=== PATIENT | male | born 1950 | race Caucasian/White ===

== ENCOUNTER 2018-04-06 10:48 | Emergency (ER) | payer OTHER, MEDICARE ==
--- NOTE | 2018-04-06 12:07 | EDPHY ---
HPI/HX/ROS/PE/MDM Narrative: CHIEF COMPLAINT: Myalgias, fever HPI: This patient is a 67 year old male arriving at the request of his PCP, Dr. Guillen , for evaluation of myalgias and fever. He returned 4-5 days ago from a trip to [place], [place], and [place]. Patient swam frequently in the salt water pool, but not in the ocean. [place] a strange reaction in his ears. Endorses cerumen impaction and hearing loss, but this was resolved after a trip to urgent care overseas. Not bitten by any wild animals. Denies any known mosquito bites or travel to areas with high malaria incidence. On the flight back on Wednesday, developed generalized body aches. Wednesday night, worsening, night sweats. Continues to feel weak and achy. Endorses headache and sore throat. Denies nausea, vomiting. Febrile, but did not feel so. REVIEW OF SYSTEMS: A comprehensive 10 system review of systems is otherwise negative aside from elements mentioned in the history of present illness and medical decision making. PMH: Includes hyperlipidemia. SOCIAL HISTORY: . Self-employed. Frequent international travel. PHYSICAL EXAM: General:Patient is alert, in no acute distress. ENT:Eyes are normal to inspection. ENT inspection normal. Neck: Normal inspection. Full range of motion. Respiratory:No respiratory distress. Breath sounds normal bilaterally. Cardiovascular: Regular rate and rhythm. Strong peripheral pulses. Normal cap refill. Abdomen:The abdomen is nontender to palpation. There are no peritoneal signs. There are normal bowel sounds. Back: Normal to inspection. No tenderness to palpation. Skin: Normal color. No rash. Warm and dry. Extremities: Normal appearance. Full range of motion. Neuro: Oriented x3. Normal motor function. Normal sensory function. ED Course: 67 y/o male presents with fever and myalgias following recent international travel. Plan for labs including CBC, chemistries, UA, flu swab, LFTs. Plan to administer 30mg IV Toradol and 1L IV NS for symptom relief. Laboratory studies largely unremarkable. Flu swab pending. Flu swab positive for flu A. Reassessed. Discussed laboratory results. Plan to discharge home in good condition with prescription for Tamiflu. He will follow up with his primary care provider. Follow up and return precautions discussed. He is comfortable with this plan. MDM: This patient presents with signs and symptoms suggestive of influenza, which is confirmed by PCR. He is obviously at risk for other tropical diseases, but I think influenza is far more likely, and the patient has no abnormal exam or laboratory findings to suggest otherwise. He will be treated with Tamiflu, and I have agreed to write a prescription for a prophylactic course for his as well. - Data Points Laboratory Results: Laboratory Results 04/06/18 12:58 04/06/18 12:58 04/06/18 04/06/18 04/06/18 12:58 12:58 12:45 WBC 6.11 10^3/uL 10^3/uL (3.80-9.50) RBC 4.55 10^6/uL 10^6/uL (4.40-6.38) Hgb 14.2 g/dL g/dL (13.7-17.5) Hct 41.8 % % (40.0-51.0) MCV 91.9 fL fL (81.5-99.8) MCH 31.2 pg pg (27.9-34.1) MCHC 34.0 g/dL g/dL (32.4-36.7) RDW 12.2 % % (11.5-15.2) Plt Count 151 10^3/uL 10^3/uL (150-400) MPV 10.2 fL fL (8.7-11.7) Neut % (Auto) 65.6 % % (39.3-74.2) Lymph % (Auto) 17.5 % % (15.0-45.0) [place] % (Auto) 16.4 % H % (4.5-13.0) Eos % (Auto) 0.0 % L % (0.6-7.6) Baso % (Auto) 0.3 % % (0.3-1.7) Nucleat RBC Rel Count 0.0 % % (0.0-0.2) Absolute Neuts (auto) 4.01 10^3/uL 10^3/uL (1.70-6.50) Absolute Lymphs (auto) 1.07 10^3/uL 10^3/uL (1.00-3.00) Absolute Monos (auto) 1.00 10^3/uL H 10^3/uL (0.30-0.80) Absolute Eos (auto) 0.00 10^3/uL L 10^3/uL (0.03-0.40) Absolute Basos (auto) 0.02 10^3/uL 10^3/uL (0.02-0.10) Absolute Nucleated RBC 0.00 10^3/uL 10^3/uL (0-0.01) Immature Gran % 0.2 % % (0.0-1.1) Immature Gran # 0.01 10^3/uL 10^3/uL (0.00-0.10) Sodium 132 mEq/L L mEq/L (135-145) Potassium 3.9 mEq/L mEq/L (3.5-5.2) Chloride 100 mEq/L mEq/L (97-110) Carbon Dioxide 24 mEq/l mEq/l (22-31) Anion Gap 8 mEq/L mEq/L (6-14) BUN 23 mg/dL mg/dL (7-23) Creatinine 1.0 mg/dL mg/dL (0.7-1.3) Estimated GFR > 60 Glucose 89 mg/dL mg/dL (70-100) Calcium 8.4 mg/dL L mg/dL (8.5-10.4) Total Bilirubin 0.8 mg/dL mg/dL (0.1-1.4) Conjugated Bilirubin 0.4 mg/dL mg/dL (0.0-0.5) Unconjugated Bilirubin 0.4 mg/dL mg/dL (0.0-1.1) AST 28 IU/L IU/L (17-59) ALT 27 IU/L IU/L (21-72) Alkaline Phosphatase 57 IU/L IU/L (38-126) Total Protein 6.6 g/dL g/dL (6.3-8.2) Albumin 3.9 g/dL g/dL (3.5-5.0) Urine Color YELLOW Urine Appearance CLEAR Urine pH 5.0 (5.0-7.5) Ur Specific [place] 1.027 (1.002-1.030) Urine Protein NEGATIVE (NEGATIVE) Urine Ketones TRACE H (NEGATIVE) Urine Blood NEGATIVE (NEGATIVE) Urine Nitrate NEGATIVE (NEGATIVE) Urine Bilirubin NEGATIVE (NEGATIVE) Urine Urobilinogen NEGATIVE EU EU (0.2-1.0) Ur Leukocyte Esterase NEGATIVE (NEGATIVE) Urine Glucose NEGATIVE (NEGATIVE) Nasal Influenza A PCR Nasal Influenza B PCR 04/06/18 12:00 WBC RBC Hgb Hct MCV MCH MCHC RDW Plt Count MPV Neut % (Auto) Lymph % (Auto) [place] % (Auto) Eos % (Auto) Baso % (Auto) Nucleat RBC Rel Count Absolute Neuts (auto) Absolute Lymphs (auto) Absolute Monos (auto) Absolute Eos (auto) Absolute Basos (auto) Absolute Nucleated RBC Immature Gran % Immature Gran # Sodium Potassium Chloride Carbon Dioxide Anion Gap BUN Creatinine Estimated GFR Glucose Calcium Total Bilirubin Conjugated Bilirubin Unconjugated Bilirubin AST ALT Alkaline Phosphatase Total Protein Albumin Urine Color Urine Appearance Urine pH Ur Specific [place] Urine Protein Urine Ketones Urine Blood Urine Nitrate Urine Bilirubin Urine Urobilinogen Ur Leukocyte Esterase Urine Glucose Nasal Influenza A PCR FLU A DETECTED H (NEGATIVE) Nasal Influenza B PCR NEGATIVE FOR FLU B (NEGATIVE) Medications Given: Discontinued Medications Sodium Chloride (Ns) 1,000 mls @ 0 mls/hr IV EDNOW ONE; Wide Open PRN Reason: Protocol Stop: 04/06/18 13:22 Last Admin: 04/06/18 13:30 Dose: 1,000 mls Ketorolac Tromethamine (Toradol) 30 mg IVP EDNOW ONE Stop: 04/06/18 13:22 Last Admin: 04/06/18 13:30 Dose: 30 mg General Time Seen by Provider: 04/06/18 11:47 Initial Vital Signs: Initial Vital Signs Temperature (C) 37.4 C 04/06/18 10:54 Heart Rate 87 04/06/18 10:54 Respiratory Rate 16 04/06/18 10:54 Blood Pressure 131/79 H 04/06/18 10:54 O2 Sat (%) 93 04/06/18 10:54 O2 Delivery Mode Room Air Allergies/Adverse Reactions: Penicillins Allergy (Mild, Verified 04/06/18 10:53) Sulfa (Sulfonamide Antibiotics) Allergy (Verified 04/06/18 10:53) Home Medications: Medication Instructions Recorded FENOFIBRATE 11/03/15 Travatan Z 0.004% (*) 11/03/15 Oseltamivir Phosphate [Tamiflu 75 75 mg PO BID 5 Days cap 04/06/18 mg (RX)] Oseltamivir Phosphate [Tamiflu 75 75 mg PO BID 5 Days cap 04/06/18 mg (RX)] Departure - Departure Disposition: Home, Routine, Self-Care Clinical Impression: Influenza A Condition: Fair Instructions: Influenza (ED) Additional Instructions: Use ibuprofen and Tylenol as needed for fever and body aches. Follow up with your primary care physician within 72 hours for reevaluation. Drink plenty of fluids. Return to the emergency department immediately for high fever, severe headache or neck pain, difficulty breathing, abdominal pain, rash or other worsening of condition. Referrals: MADELYN GUILLEN [Primary Care Provider] - As per Instructions Prescriptions: Oseltamivir Phosphate [Tamiflu 75 mg (RX)] 75 mg PO BID 5 Days cap Oseltamivir Phosphate [Tamiflu 75 mg (RX)] 75 mg PO BID 5 Days cap Report Scribed for: Judd Norris Report Scribed by: Winsome Diaz Date of Report: 04/06/18 Time of Report: 12:07 Physician Review and Approval Statement: Portions of this note were transcribed by an ED scribe. I personally performed the history, physical exam, and medical decision making; and confirm the accuracy of the information in the transcribed note.
[2018-04-06] MEDS ORDERED: KETOROLAC 30 MG/1 ML SDV IVP ONE (13:21)
[2018-04-06] MEDS ORDERED: NS 1,000 ML IV ONE (13:21)
[2018-04-06 13:22] LABS: PLATELET COUNT 151 10^3/uL (150-400)
[2018-04-06 14:27] VITALS: BP 114/72
== END 2018-04-06 14:25 | disposition home or self-care (01) ==
DX: J10.1 Influenza due to other identified influenza virus with other respiratory manifestations (principal); E78.5 Hyperlipidemia, unspecified; E86.9 Volume depletion, unspecified
CPT/HCPCS: 96361; 96374; 99284; J1885